=== PATIENT | female | born 1930 | race African-American/Black ===

== ENCOUNTER 2016-08-02 13:54 | Emergency (ER) | payer OTHER ==
[~2016-08-02] VITALS: Ht 160 cm; Wt 83.9 kg
--- NOTE | ~2016-08-02 | EKG ---
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
[~2016-08-02 13:54] MED LIST: ADVAIR 250-501 EACH INH; ADVAIR HFA 230M12 GM; AMLODIPINE BESY10 MG PO; APAP/CODEI12 MG/5 ML; APAP/CODEINE ELI5 M1 OR; ARICEPT 5 MG TAB5 MG; ARICEPT 5 MG TAB5 MG PO; ASPIR 8181 MG PO; AZOPT OPHTH1 %/10 M1 OP; BRIMONIDINE TAR1 BO1 OPHTHALMIC; CARVEDILOL12.5 MG PO; CARVEDILOL6.25 MG PO; CIPROFLOXACIN500 M1 PO; CLONIDINE HCL0.3 M2 PO; CLONIDINE HCL0.3 M3 PO; COMPAZINE10 MG PO; COREG PO; COREG6.25 MG PO; DEPAKOTE 250MG250 M1 PO; DUONEB 2.5-0.5 M3 ML INH; FISHOIL; FUROSEMIDE 40 M40 M1 PO; K-DUR10 ME1 PO; LASIX 80 MG TAB80 M1 PO; LASIX 80 MG TAB80 MG PO; LISINOPRIL20 MG PO; LISINOPRIL40 MG PO; LUMIGAN2.5 M1 OP; LUMIGAN2.5 M1 OPHTHALMIC; MINIPRIN81 MG PO; NAMENDA 10 MG T10 MG PO; NAMENDA XR28 MG PO; NORVASC10 MG PO; OMEPRAZOLE20 M2 PO; OMEPRAZOLE20 MG PO; PEPCID20 MG PO; POTASSIUM20 PO; PRAVASTATIN SOD40 MG PO; PREDNISONE 10 M10 MG PO; PROAIR HFA8.5 GM; PROAIR HFA8.5 GM INH; PROPOXY-N/APAP1 TAB PO; ROBITUSSIN100 MG/53 PO; SIMVASTATIN80 MG PO; SINGULAIR 10 MG10 M1 PO; SPIRONOLACTONE25 M1 PO; TESSALON PERLE100 MG PO; THEO-DUR200 MG PO; TRAMADOL 50 MG50 MG PO; TYLENOL325 MG PO; ULTRAM 50MG TAB50 MG PO; ZANTAC 150MG T150 MG PO; ZOCOR 10 MG TAB10 MG PO; ZPAK PO
[2016-08-02] MEDS ORDERED: LIPITOR10 MG PO (14:23)
[2016-08-02] MEDS ORDERED: CLARITIN10 MG PO (14:25)
[2016-08-02] MEDS ORDERED: XALATAN2.5 ML OPHTHALMIC (14:25)
[2016-08-02] MEDS ORDERED: METFORMIN HCL500 MG PO (14:26)
[2016-08-02] MEDS ORDERED: NAMENDA 10 MG T10 MG PO (14:26)
[2016-08-02] MEDS ORDERED: POTASSIUM20 PO (14:27)
[2016-08-02] MEDS ORDERED: THEREMS-M1 EACH PO (14:27)
[2016-08-02] MEDS ORDERED: TIMOLOL MA0.5 %/5 M2 OPHTHALMIC (14:28)
[2016-08-02] MEDS ORDERED: LOPERAMIDE 2 MG2 M1 PO (14:29)
[2016-08-02 14:30] LABS: HEMATOCRIT 31.5 % (37.0-47.0); HEMOGLOBIN 10.5 gm/dL (12.0-15.0); MCHC 33.4 % (28.0-37.0); MCV 89.7 fL (80.0-100.0); PLATELET COUNT 272 thou/uL (150-400); RBC 3.51 mil/uL (4.20-5.00); RDW 15.7 % (10.5-14.5); WBC 8.8 thou/uL (4.0-11.0)
[2016-08-02 14:35] LABS: MANUAL DIFF YES
[2016-08-02 14:40] LABS: CALCIUM 9.5 mg/dL (8.5-10.1); CREATININE 1.7 mg/dL (0.6-1.3); POTASSIUM 5.7 mmol/L (3.5-5.1)
[2016-08-02] MEDS ORDERED: AUGMENTIN 875-1 EACH PO (14:52)
[2016-08-02 14:59] LABS: TOTAL CELL COUNT 100
[2016-08-14] MEDS ORDERED: ALDACTONE25 MG PO (11:15)
[2016-08-14] MEDS ORDERED: LASIX 40 MG TAB40 M1 PO (11:15)
[2016-08-14] MEDS ORDERED: PULMICORT0.5 MG/21 INH (11:15)
== END 2016-08-02 16:25 | disposition home or self-care (01) ==
LOC: ER 13:54
PROVIDERS: Emergency Medicine
DX: J20.9 Acute bronchitis, unspecified (principal); R11.10 Vomiting, unspecified; R07.9 Chest pain, unspecified; K21.9 Gastro-esophageal reflux disease without esophagitis; I11.0 Hypertensive heart disease with heart failure; I50.9 Heart failure, unspecified; Z90.49 Acquired absence of other specified parts of digestive tract; Z88.2 Allergy status to sulfonamides; Z88.8 Allergy status to other drugs, medicaments and biological substances

== ENCOUNTER 2017-06-24 17:56 | Observation (INO) | payer OTHER ==
[~2017-06-24] VITALS: Ht 157.5 cm; Wt 74.8 kg
--- NOTE | ~2017-06-24 | EKG ---
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
[~2017-06-24 17:56] MED LIST changes: +ALDACTONE25 MG PO; +AUGMENTIN 875-1 EACH PO; +CLARITIN10 MG PO; +LASIX 40 MG TAB40 M1 PO; +LIPITOR10 MG PO; +LOPERAMIDE 2 MG2 M1 PO; +METFORMIN HCL500 MG PO; +PULMICORT0.5 MG/21 INH; +THEREMS-M1 EACH PO; +TIMOLOL MA0.5 %/5 M2 OPHTHALMIC; +XALATAN2.5 ML OPHTHALMIC
[2017-06-24 18:17] VITALS: BP 116/53
[2017-06-24] MEDS ORDERED: ALDACTONE25 MG PO (18:47)
[2017-06-24] MEDS ORDERED: ARICEPT 5 MG TAB5 MG PO (19:11)
[2017-06-24] MEDS ORDERED: CLARITIN10 MG PO (19:11)
[2017-06-24] MEDS ORDERED: DEPAKOTE 250MG250 M1 PO (19:13)
[2017-06-24] MEDS ORDERED: COSOPT OCUMETER10 ML OP (19:14)
[2017-06-24 19:24] LABS: HEMATOCRIT 30.1 % (37.0-47.0); HEMOGLOBIN 10.3 gm/dL (12.0-15.0); MCH 31.8 pg (26.0-34.0); MCHC 34.2 g/dL (28.0-37.0); MCV 93.1 fL (80.0-100.0); PLATELET COUNT 206 thou/uL (150-400); RBC 3.23 mil/uL (4.20-5.00); RDW 14.4 % (10.5-14.5); WBC 7.7 thou/uL (4.0-11.0)
[2017-06-24 19:26] LABS: MANUAL DIFF YES
[2017-06-24 19:34] LABS: ANION GAP 7 mmol/L (7-16); BUN 41 mg/dL (7-18); CALCIUM 9.9 mg/dL (8.5-10.1); CHLORIDE 109 mmol/L (98-107); CO2 27 mmol/L (21-32); CREATININE 2.7 mg/dL (0.6-1.0); GLUCOSE 99 mg/dL (74-106); POTASSIUM 4.9 mmol/L (3.5-5.1); SODIUM 143 mmol/L (136-145)
[2017-06-24 19:43] LABS: ALBUMIN 3.6 g/dL (3.4-5.0); ALKALINE PHOSPHATASE 83 U/L (46-116); SGOT 19 U/L (15-37); SGPT 11 U/L (30-65); TOTAL BILIRUBIN 0.2 mg/dL (<0.1-1.0); TOTAL PROTEIN 7.2 g/dL (6.4-8.2); TROPONIN-I < 0.04 ng/mL (<0.06)
[2017-06-24 19:45] LABS: TOTAL CELL COUNT 100
[2017-06-24 19:46] LABS: ABSOLUTE NEUTROPHILS 4.6 thou/uL (1.4-8.2)
[2017-06-24 19:57] LABS: URINE BILIRUBIN NEGATIVE (Negative); URINE BLOOD NEGATIVE (Negative); URINE COLOR YELLOW; URINE GLUCOSE-RANDOM* NEGATIVE (Negative); URINE KETONES NEGATIVE (Negative); URINE NITRITE NEGATIVE (Negative); URINE PROTEIN (DIPSTICK) NEGATIVE (Negative); URINE SPECIFIC GRAVITY 1.015 (1.005-1.035); URINE UROBILINOGEN 0.2 E.U./dl (0.2-1.0)
[2017-06-24] MEDS ORDERED: PEPCID20 MG PO (20:43)
[2017-06-24] MEDS ORDERED: SINGULAIR 10 MG10 M1 PO (20:43)
[2017-06-24] MEDS ORDERED: AMLODIPINE BESY10 MG PO (20:44)
[2017-06-24 21:48] VITALS: BP 123/53
[2017-06-24 23:16] VITALS: BP 146/68
[2017-06-25] MEDS ORDERED: COSOPT OCUMETER10 M1 OPHTHALMIC (00:48)
[2017-06-25 03:26] VITALS: BP 147/72
[2017-06-25 06:07] LABS: CREATININE 1.8 mg/dL (0.6-1.0)
[2017-06-25 15:34] VITALS: BP 139/69
== END 2017-06-25 17:45 ==
LOC: ER 17:56 → EROBS 20:54 → 4E 20:54
PROVIDERS: Physician Assistant
DX: E86.9 Volume depletion, unspecified (principal); I11.0 Hypertensive heart disease with heart failure; I50.32 Chronic diastolic (congestive) heart failure; E78.00 Pure hypercholesterolemia, unspecified; K21.9 Gastro-esophageal reflux disease without esophagitis; H54.40 Blindness, one eye, unspecified eye; F03.90 Unspecified dementia, unspecified severity, without behavioral disturbance, psychotic disturbance, mood disturbance, and anxiety; N17.0 Acute kidney failure with tubular necrosis

== ENCOUNTER 2018-01-11 08:05 | Inpatient (IN) | payer OTHER ==
[~2018-01-11] VITALS: Ht 162.6 cm; Wt 77.6 kg
--- NOTE | ~2018-01-11 | HC ---
[facility] [place] [address] CONSULTATION Name: VONNIE BRANHAM Room #: 355-P ADM IN .R.#: [id number] Admission: 01/11/18 Attend Phys: Sarah Valencia MD Discharge: Date of : 31 Report #: [id number] THIS REPORT FOR: //name// CC: Sarah Valencia DATE OF SERVICE: 01/13/2018 INFECTIOUS DISEASES CONSULTATION REASON FOR CONSULTATION: Evaluate bacteremia. HISTORY OF PRESENT ILLNESS: The patient was an 87-year-old admitted on 01/11/2018 from senior care with hypoxemia. She was in respiratory distress with oxygen saturation down to the 65% range. It was felt most likely related to congestive heart failure which she has had issues with before. She has had no fever, chills or sweats. There was question that she may have aspirated last night and was placed on BiPAP. Her white count went up to 15,000. One of the blood cultures from admission is now growing gram-positive bacillus. She has been placed on vancomycin and Levaquin. She has had no cough or sputum production. She is a poor historian. She stated that only thing she wanted to do is to go home. She did know she was in the hospital. She did know that she resides in a senior care. She had a CAT scan, which showed a small left-sided pulmonary embolus. Pulmonary Medicine evaluated and thought this could possibly be embolus versus artifact. Cardiology evaluated the patient as well and is assisting in her care. Speech therapy is to evaluate. No video swallow yet performed. No nausea or vomiting. No diarrhea. Able to void on her own. ALLERGIES: IODINE AND SULFA. MEDICATIONS: As noted on her SEP, now including vancomycin and Levaquin. PAST MEDICAL HISTORY: Congestive heart failure, gastroesophageal reflux, hypertension, strokes, cholecystectomy, bilateral cataract surgery, glaucoma, blind in the right eye and hyperlipidemia. FAMILY HISTORY: Hypertension. SOCIAL HISTORY: Nonsmoker. No significant alcohol intake. No tuberculosis exposure. No HIV risk factors. REVIEW OF SYSTEMS: Denies any headache, acute change in vision or sore throat. Denies any rash or adenopathy. There has been no dysuria. No chest pain. According to the nursing staff, no neurologic changes. No seizure activity. [address] [address] CONSULTATION Name: VONNIE BRANHAM Room #: 355-[facility] IN [facility].#: [id number] Admission: 01/11/18 Attend Phys: Sarah Valencia MD Discharge: Date of : 31 Report #: [id number] PHYSICAL EXAMINATION: VITAL SIGNS: Afebrile and hemodynamically stable. Most recent vitals include pulse of 67 and blood pressure 126/56. GENERAL: She was alert and cooperative. She was on 2 liters of oxygen per nasal cannula. SKIN: Unremarkable. LYMPH: Unremarkable. HEENT: She was with decreased vision in the right eye. Mouth, unremarkable. NECK: Supple. No thyromegaly or mass. LUNGS: Few crackles in the bases bilaterally. No rub or consolidation. HEART: Regular, without murmur. No gallop. ABDOMEN: Soft and nontender. No hepatosplenomegaly or mass. GENITOURINARY: The patient refused genital and rectal examination. She did have an indwelling Up catheter. EXTREMITIES: Remarkable for advanced arthritis changes. She had significant hammertoe deformity. Sensation was intact. Overall, generalized weakness. NEUROLOGIC: No other focal neurologic examination. LABORATORY STUDIES: Blood cultures as noted above, with gram-positive rods seen on 1 of 2 cultures from 01/11/2018. Sputum culture is currently pending. Repeat blood cultures and urine culture pending from today. CT scan of the chest showed basilar atelectasis, infiltrates, mild bilateral hilar lymphadenopathy, cardiomegaly, small bilateral pleural effusions and tiny left anterior basilar segment pulmonary embolus, 3 mm. Urinalysis, rare wbc's, moderate rbc's and moderate bacteria. Urine cultures pending. BNP 6479. Troponin 0.06. Sodium 148, potassium 4.2, bicarbonate at 30 and creatinine 1.0. Liver function test normal. D-dimer 2. IMPRESSION: An 87-year-old senior care resident who presents with congestive heart failure now has bilateral basilar infiltrates and acute hypoxemia last evening, now improved on 2 liters. She has a combination of aspiration versus congestive heart failure and small pulmonary embolus. I suspect the bacteremia is most likely a contaminant. PLAN: I would recommend that we continue her antibiotic coverage for an aspiration with healthcare-associated coverage. She will continue oxygen supplementation. Aspiration precautions. Repeat CBC to ensure normalization of her white count. <ELECTRONICALLY SIGNED> By: Rancho Del Cid MD 01/14/18 1450 2133 08 Rancho Del Cid MD /nt
--- NOTE | ~2018-01-11 | HC ---
[facility] [place] [address] CONSULTATION Name: VONNIE BRANHAM Room #: 429-P ADM IN ..#: [id number] Admission: 01/11/18 Attend Phys: Sarah Valencia MD Discharge: Date of : 31 Report #: [id number] THIS REPORT FOR: //name// CC: Sarah Vlaencia DATE OF SERVICE: 01/11/2018 CARDIOLOGY CONSULTATION INDICATION: Dyspnea. HISTORY OF PRESENT ILLNESS: This is an 87-year-old female residing at [facility] who was transferred for an apparent respiratory distress. She was found to be in distress and transferred to the hospital. She has a history of apparent COPD, severe cardiomyopathy, dementia and hypertension. Presently, the patient denies any episodes of chest pains, lightheadedness or fevers. She does have some dyspnea, which has improved. There is no history of PND or orthopnea. She is a poor historian and much of the information is obtained from her medical records. PAST MEDICAL HISTORY: Severe cardiomyopathy, ventricular ectopy, dementia, hypertension, CVA, chronic edema. MEDICATIONS: Include Aricept 10 mg, aspirin 81 mg, Coreg 6.25 mg twice a day, Lasix 40 mg in the morning, Lipitor 10 mg, Norvasc 10 mg. ALLERGIES: SULFA AND IODINE. SOCIAL HISTORY: Negative for tobacco use. FAMILY HISTORY: Unobtainable. REVIEW OF SYSTEMS: Unobtainable. PHYSICAL EXAMINATION: VITAL SIGNS: Blood pressure is 139/60, heart rate is 80 beats per minute. GENERAL APPEARANCE: An elderly appearing female in no acute distress. HEENT: Normocephalic. Sclerae are anicteric. ENT: Oral mucosa moist. NECK: Supple. LUNGS: Diminished breath sounds at the bases. CARDIAC: Regular rate and rhythm, S1, S2 positive. ABDOMEN: Soft, nontender. EXTREMITIES: No cyanosis, positive edema. IMAGING: ECG reveals sinus rhythm, first-degree AV block, right bundle branch block, left anterior hemiblock, PVCs. [facility] [address] [place] [address] CONSULTATION Name: VONNIE BRANHAM Room #: 429-[facility] IN .R.#: [id number] Admission: 01/11/18 Attend Phys: Sarah Valencia MD Discharge: Date of : 31 Report #: [id number] LABORATORY VALUES: White count is 10, hemoglobin is 9.9. Sodium is 147, creatinine is 0.9. ASSESSMENT AND PLAN: 1. Acute on chronic combined congestive heart failure, previously known to have an ejection fraction in the 30% range. She appears comfortable lying completely supine. She does have evidence for fluid overload, will manage with intravenous Lasix. 2. Hypertension, continue with medications. 3. Edema, should improve with intravenous Lasix therapy. 4. Dementia, continue with Namenda. <ELECTRONICALLY SIGNED> By: Grant Daigle MD 01/12/18 0718 1540 2215 MD jessica Parker
--- NOTE | ~2018-01-11 | EKG ---
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: neris : 1930 Requested By: Sarah Valencia Order Number: [id number] MD: Domingo Bright Measurements Intervals [place] Rate: 93 P: -73 MA: 146 QRS: -64 QRSD: 151 T: 95 QT: 411 QTc: 512 Interpretive Statements Sinus atrial rhythm Frequent supraventricular complexes Left atrial enlargement Right bundle branch block Left anterior hemiblock Baseline wander in lead(s) V6 Compared to ECG 01/11/2018 08:10:03 atrial premature complexes now present PVCs are no longer present Electronically Signed On 01-13-2018 8:44:42 CDT by Domingo Bright [email or web address] <ELECTRONICALLY SIGNED> By: Domingo Bright MD, [facility] 01/13/18 0844 0056 0056 Domingo Bright MD, [facility] /EPI
--- NOTE | ~2018-01-11 | EKG ---
[facility] [place] [address] ELECTROCARDIOGRAM REPORT Name: VONNIE BRANHAM Room #: 429-[facility] IN .R.#: [id number] Admission: 01/11/18 Attend Phys: Sarah Valencia MD Discharge: Date of : 31 Report #: [id number] THIS REPORT FOR: //name// [facility] ED Test Date: 2018-01-11 Test Time: 08:10:03 Pat Name: VONNIE BRANHAM Department: Room: Gender: F Cardiovascular Disease Specialist: nixon : 1930 Requested By: Ghislaine Garrett Order Number: [id number] MD: Grant Daigle Measurements Intervals [place] Rate: 84 P: 0 KS: 196 QRS: -66 QRSD: 157 T: 100 QT: 440 QTc: 521 Interpretive Statements Sinus rhythm Multiple premature complexes, vent & supraven Right bundle branch block LVH with IVCD and secondary repol abnrm Prolonged QT interval Compared to ECG 06/24/2017 18:49:27 Intraventricular conduction delay now present Early repolarization now present Prolonged QT interval now present First degree AV block no longer present Left anterior fascicular block no longer present Electronically Signed On 01-11-2018 17:21:40 CDT by Grant Daigle [email or web address] <ELECTRONICALLY SIGNED> By: Grant Daigle MD 01/11/18 1721 0810 0810 Grant Daigle MD /EPI
[2018-01-11 08:05] VITALS: BP 139/62
[~2018-01-11 08:05] MED LIST changes: +COSOPT OCUMETER10 M1 OPHTHALMIC; +COSOPT OCUMETER10 ML OP
[2018-01-11 08:20] LABS: ABSOLUTE NEUTROPHILS 7.5 thou/uL (1.4-8.2); BASOPHILS 0.9 % (0.0-2.0); EOSINOPHILS 2.5 % (0.0-3.0); HEMATOCRIT 28.7 % (37.0-47.0); HEMOGLOBIN 9.9 gm/dL (12.0-15.0); LYMPHOCYTES 15.2 % (24.0-44.0); MCH 30.3 pg (26.0-34.0); MCHC 34.7 g/dL (28.0-37.0); MCV 87.3 fL (80.0-100.0); PLATELET COUNT 225 thou/uL (150-400); POLYS 75.4 % (36.0-66.0); RBC 3.29 mil/uL (4.20-5.00); RDW 16.7 % (10.5-14.5)
[2018-01-11 08:33] LABS: CALCIUM 9.7 mg/dL (8.5-10.1); CREATININE 0.9 mg/dL (0.6-1.0); POTASSIUM 3.5 mmol/L (3.5-5.1)
[2018-01-11 08:33] LABS: BE(vivo) 1.8 mmol/L (-2 to +3); HCO3 27.7 mmol/L (22.0-26.0); PCO2 49.2 mmHg (35.0-45.0); PO2 74.9 mmHg (80.0-100.0); pH 7.368 (7.360-7.450); sO2 94.5 % (92.0-98.0)
[2018-01-11] MEDS ORDERED: CLARITIN10 MG PO (09:25)
[2018-01-11] MEDS ORDERED: COSOPT OCUMETER10 M1 OPHTHALMIC (09:29)
[2018-01-11] MEDS ORDERED: LASIX 40 MG TAB40 M2 PO (09:30)
[2018-01-11 10:09] VITALS: BP 132/76
[2018-01-11 11:57] VITALS: BP 156/94
[2018-01-11 12:02] VITALS: BP 156/94
[2018-01-11 19:43] VITALS: BP 146/65
[2018-01-12 03:36] VITALS: BP 148/75
[2018-01-12 06:11] LABS: CALCIUM 9.2 mg/dL (8.5-10.1); CREATININE 1.1 mg/dL (0.6-1.0); POTASSIUM 3.7 mmol/L (3.5-5.1)
[2018-01-12 07:30] VITALS: BP 147/71
[2018-01-12 15:50] VITALS: BP 119/60
[2018-01-12 20:00] VITALS: BP 135/44
[2018-01-13] VITALS (7 sets, daily range): BP systolic 122–167; BP diastolic 56–90
[2018-01-13 01:00] LABS: BE(vivo) 0.5 mmol/L (-2 to +3); HCO3 27.8 mmol/L (22.0-26.0); PCO2 58.3 mmHg (35.0-45.0); PO2 80.5 mmHg (80.0-100.0); pH 7.297 (7.360-7.450); sO2 94.5 % (92.0-98.0)
[2018-01-13 01:38] LABS: HEMOGLOBIN 10.6 gm/dL (12.0-15.0); MCH 29.8 pg (26.0-34.0); MCHC 34.1 g/dL (28.0-37.0); MCV 87.4 fL (80.0-100.0); RBC 3.55 mil/uL (4.20-5.00); WBC 15.3 thou/uL (4.0-11.0)
[2018-01-13 01:59] LABS: ALBUMIN 3.7 g/dL (3.4-5.0); ANION GAP 10 mmol/L (7-16); BUN 38 mg/dL (7-18); CALCIUM 9.2 mg/dL (8.5-10.1); CHLORIDE 108 mmol/L (98-107); CO2 30 mmol/L (21-32); DIRECT BILIRUBIN < 0.1 mg/dL (<0.1-0.3); GLUCOSE 191 mg/dL (74-106); POTASSIUM 4.2 mmol/L (3.5-5.1); SGOT 30 U/L (15-37); SGPT 30 U/L (30-65); SODIUM 148 mmol/L (136-145); TOTAL BILIRUBIN 0.3 mg/dL (<0.1-1.0); TOTAL PROTEIN 7.2 g/dL (6.4-8.2)
[2018-01-13 02:34] LABS: BE(vivo) 2.2 mmol/L (-2 to +3); HCO3 28.1 mmol/L (22.0-26.0); PCO2 49.9 mmHg (35.0-45.0); pH 7.369 (7.360-7.450); sO2 97.3 % (92.0-98.0)
[2018-01-13 03:59] LABS: URINE BILIRUBIN NEGATIVE (Negative); URINE BLOOD 3+ (Negative); URINE CLARITY SL CLOUDY; URINE COLOR YELLOW; URINE GLUCOSE-RANDOM* NEGATIVE (Negative); URINE KETONES NEGATIVE (Negative); URINE PROTEIN (DIPSTICK) TRACE (Negative); URINE UROBILINOGEN 0.2 E.U./dl (0.2-1.0)
[2018-01-13 04:00] LABS: URINE LEUKOCYTES-REFLEX 2+ (Negative); URINE NITRITE-REFLEX POSITIVE (Negative)
[2018-01-13 04:11] LABS: CASTS None Seen /LPF (None Seen); MUCUS 0-3 Light strn/LPF (None Seen); SQUAMOUS None Seen /LPF (0-3); TRIPLE PHOSPHATE CRYSTALS >10 Many /LPF (None Seen); URINE WBC-REFLEX 0-5 Rare /HPF (0-5)
[2018-01-13 04:12] LABS: CRYSTALS None Seen /LPF (None Seen)
[2018-01-13 12:16] LABS: BE(vivo) 5.6 mmol/L (-2 to +3); HCO3 30.2 mmol/L (22.0-26.0); PO2 90.7 mmHg (80.0-100.0); pH 7.454 (7.360-7.450); sO2 97.2 % (92.0-98.0)
[2018-01-14 05:16] VITALS: BP 137/62
[2018-01-14 06:27] LABS: ABSOLUTE NEUTROPHILS 6.5 thou/uL (1.4-8.2); BASOPHILS 0.5 % (0.0-2.0); EOSINOPHILS 3.7 % (0.0-3.0); HEMATOCRIT 27.8 % (37.0-47.0); HEMOGLOBIN 9.2 gm/dL (12.0-15.0); LYMPHOCYTES 22.7 % (24.0-44.0); MCH 29.4 pg (26.0-34.0); MCHC 33.3 g/dL (28.0-37.0); MCV 88.5 fL (80.0-100.0); MONOCYTES 10.5 % (1.0-8.0); POLYS 62.6 % (36.0-66.0); RBC 3.14 mil/uL (4.20-5.00); RDW 16.9 % (10.5-14.5); WBC 10.4 thou/uL (4.0-11.0)
[2018-01-14 06:29] LABS: PLATELET COUNT 211 thou/uL (150-400)
[2018-01-14 06:30] LABS: CALCIUM 8.8 mg/dL (8.5-10.1); POTASSIUM 3.5 mmol/L (3.5-5.1)
[2018-01-14 08:02] VITALS: BP 129/50
[2018-01-14 11:52] VITALS: BP 135/65
[2018-01-14 15:18] VITALS: BP 121/58
[2018-01-14 19:29] VITALS: BP 114/44
[2018-01-15 03:51] VITALS: BP 136/55
[2018-01-15 07:47] VITALS: BP 129/52
[2018-01-15 12:14] VITALS: BP 126/65
[2018-01-15 16:49] VITALS: BP 128/60
[2018-01-15 20:23] VITALS: BP 139/65
[2018-01-16 02:43] LABS: CALCIUM 8.8 mg/dL (8.5-10.1); CREATININE 1.2 mg/dL (0.6-1.0); POTASSIUM 3.5 mmol/L (3.5-5.1)
[2018-01-16 04:30] VITALS: BP 149/65
[2018-01-16 07:18] VITALS: BP 149/58
[2018-01-16 11:49] VITALS: BP 119/59
[2018-01-16 15:29] VITALS: BP 154/74
[2018-01-16 17:25] LABS: INR 1.1; PROTIME 10.8 Seconds (9.3-11.4)
[2018-01-16 19:55] VITALS: BP 135/59
[2018-01-17 03:55] VITALS: BP 132/55
[2018-01-17 05:45] LABS: INR 1.1
[2018-01-17 07:53] VITALS: BP 143/58
[2018-01-17] MEDS ORDERED: ALBUTEROL2.5 MG/0.5 INH (10:16)
[2018-01-17] MEDS ORDERED: LEVAQUIN 500 M500 M1 PO (10:16)
[2018-01-17] MEDS ORDERED: XARELTO15 MG PO (10:20)
[2018-01-17] MEDS ORDERED: DEMADEX 2020 MG/1 TA PO (10:21)
[2018-01-17 11:21] VITALS: BP 138/68
== END 2018-01-17 12:53 | DRG 291 ==
LOC: ER 08:05 → 4E 09:13 → EROBS 09:13 → 4E 10:30 → 3W 01-13 01:36
PROVIDERS: Emergency Medicine; Internal Medicine; Internal Medicine Cardiovascular Disease; Internal Medicine Pulmonary Disease; Specialist
PROC: 5A09357 Assistance with Respiratory Ventilation, Less than 24 Consecutive Hours, Continuous Positive Airway Pressure (ICD-10-PCS; principal; 2018-01-13)
DX: I13.0 Hypertensive heart and chronic kidney disease with heart failure and stage 1 through stage 4 chronic kidney disease, or unspecified chronic kidney disease (principal); I50.43 Acute on chronic combined systolic (congestive) and diastolic (congestive) heart failure; J96.21 Acute and chronic respiratory failure with hypoxia; J96.22 Acute and chronic respiratory failure with hypercapnia; I26.99 Other pulmonary embolism without acute cor pulmonale; F03.91 Unspecified dementia, unspecified severity, with behavioral disturbance; E87.0 Hyperosmolality and hypernatremia; J84.9 Interstitial pulmonary disease, unspecified; I42.9 Cardiomyopathy, unspecified; E78.00 Pure hypercholesterolemia, unspecified; H40.9 Unspecified glaucoma; H54.61 Unqualified visual loss, right eye, normal vision left eye; J44.9 Chronic obstructive pulmonary disease, unspecified; N18.3 Chronic kidney disease, stage 3 (moderate); K21.9 Gastro-esophageal reflux disease without esophagitis; Z86.73 Personal history of transient ischemic attack (TIA), and cerebral infarction without residual deficits; Z90.49 Acquired absence of other specified parts of digestive tract; Z98.49 Cataract extraction status, unspecified eye; Z88.2 Allergy status to sulfonamides; Z91.041 Radiographic dye allergy status; Z82.49 Family history of ischemic heart disease and other diseases of the circulatory system; Z79.82 Long term (current) use of aspirin; Z79.899 Other long term (current) drug therapy; Z79.01 Long term (current) use of anticoagulants
CPT/HCPCS: 10183; 10879

== ENCOUNTER 2019-01-09 05:52 | Inpatient (IN) | payer OTHER ==
[~2019-01-09] VITALS: Ht 157.5 cm; Wt 81.1 kg
[2019-01-09] VITALS (30 sets, daily range): BP systolic 120–177; BP diastolic 46–108
[~2019-01-09 05:52] MED LIST changes: +ALBUTEROL2.5 MG/0.5 INH; +DEMADEX 2020 MG/1 TA PO; +IPRATROPIU0.2 MG/1 M INH; +LASIX 40 MG TAB40 M2 PO; +LEVAQUIN 500 M500 M1 PO; +XARELTO15 MG PO; +XARELTO20 MG PO
[2019-01-09] MEDS ORDERED: TIMOL 0.5%-BRIM10 ML OPHTHALMIC (06:48)
[2019-01-09 06:55] LABS: ABSOLUTE NEUTROPHILS 6.5 thou/uL (1.4-8.2); BASOPHILS 0.5 % (0.0-2.0); EOSINOPHILS 0.3 % (0.0-3.0); HEMATOCRIT 29.7 % (37.0-47.0); HEMOGLOBIN 9.8 gm/dL (12.0-15.0); LYMPHOCYTES 9.1 % (24.0-44.0); MCH 30.5 pg (26.0-34.0); MCV 92.5 fL (80.0-100.0); MONOCYTES 8.8 % (1.0-8.0); PLATELET COUNT 172 thou/uL (150-400); POLYS 81.3 % (36.0-66.0); RBC 3.21 mil/uL (4.20-5.00); RDW 15.9 % (10.5-14.5)
[2019-01-09 07:00] LABS: CALCIUM 9.2 mg/dL (8.5-10.1); CREATININE 0.9 mg/dL (0.6-1.0); POTASSIUM 3.5 mmol/L (3.5-5.1)
[2019-01-09 07:10] LABS: ALBUMIN 3.4 g/dL (3.4-5.0); MAGNESIUM 2.5 mg/dL (1.8-2.4); TOTAL BILIRUBIN 0.3 mg/dL (<0.1-1.0); TOTAL PROTEIN 6.9 g/dL (6.4-8.2); TROPONIN-I 0.06 ng/mL (<0.06)
[2019-01-09 07:39] LABS: URINE BILIRUBIN NEGATIVE (Negative); URINE BLOOD NEGATIVE (Negative); URINE CLARITY CLEAR; URINE COLOR YELLOW; URINE GLUCOSE-RANDOM* NEGATIVE (Negative); URINE KETONES NEGATIVE (Negative); URINE LEUKOCYTES-REFLEX NEGATIVE (Negative); URINE NITRITE-REFLEX NEGATIVE (Negative); URINE PROTEIN (DIPSTICK) 1+ (Negative); URINE SPECIFIC GRAVITY 1.025 (1.005-1.035)
[2019-01-09 07:46] LABS: BACTERIA-REFLEX 1-9 Few /HPF (None Seen); CRYSTALS None Seen /LPF (None Seen); HYALINE CASTS 0-3 Few /LPF (None Seen); SQUAMOUS 0-3 Few /LPF (0-3); URINE RBC None Seen /HPF (0-2); URINE WBC-REFLEX 0-5 Rare /HPF (0-5)
[2019-01-09 08:07] LABS: BE(vivo) 4.1 mmol/L (-2 to +3); HCO3 30.8 mmol/L (22.0-26.0); PCO2 56.7 mmHg (35.0-45.0); PO2 82.4 mmHg (80.0-100.0); pH 7.353 (7.360-7.450); sO2 95.4 % (92.0-98.0)
--- NOTE | 2019-01-09 08:23 | EKG ---
[facility] [employer] [place] [address] ELECTROCARDIOGRAM REPORT Name: VONNIE BRANHAM [facility] [id number] ������������������ Admission: 01/09/19 ������������������ Attend Phys: Discharge: ������������������ Date of : 31 Report #: [id number] ����������������������������������������������������������������� [id number] THIS REPORT FOR: //name// [facility] ED Test Date: 2019-01-09 Test Time: 05:55:10 Pat Name: VONNIE BRANHAM Department: Room: Gender: F Valve Setter: KIRBY : 1930 Requested By: Ramesh Ruffin Order Number: [id number] MD: Marcial Watts Measurements Intervals [place] Rate: 71 P: 47 [place]: 274 QRS: -61 QRSD: 163 T: 98 QT: 476 QTc: 518 Interpretive Statements Sinus rhythm Multiform ventricular premature complexes Prolonged [place] interval Right bundle branch block LVH with IVCD and secondary repol abnrm Electronically Signed On 01-09-2019 8:22:52 CDT by Marcial Watts [email or web address] ��������������������������������������������� <ELECTRONICALLY SIGNED> ���������������������������������������� By: Marcial Watts MD ��������������������������������������������� 01/09/19 0822 0555 0555 Marcial Watts MD /GABRIEL
[2019-01-09 13:58] LABS: BE(vivo) -2.1 mmol/L (-2 to +3); HCO3 23.2 mmol/L (22.0-26.0); PCO2 41.7 mmHg (35.0-45.0); pH 7.363 (7.360-7.450); sO2 78.2 % (92.0-98.0)
[2019-01-09 13:59] LABS: PO2 43.9 mmHg (80.0-100.0)
[2019-01-09 15:43] LABS: BE(vivo) 3.9 mmol/L (-2 to +3); HCO3 29.8 mmol/L (22.0-26.0); PCO2 51.1 mmHg (35.0-45.0); PO2 98.5 mmHg (80.0-100.0); pH 7.384 (7.360-7.450); sO2 97.3 % (92.0-98.0)
--- NOTE | 2019-01-09 16:53 | NUR ---
VASCULAR ACCESS CONSULTED FOR PICC LINE IN ER. PT'S LABS,MEDS,HISTORY,ORDER AND CONSENT VERIFIED. DISCUSSED BENEFITSA AND RISK WITH DAUGHTER,VERBALIZED UNDERSTANDING. DANK BRACHIAL WIDELY PATENT WITH USG,1% LIDOCAINE GIVEN SQ.5FR TL POWER PICC TRIMMED TO 43CM INSERTED TO 0CM PER [facility] POLICY. STAT CXR OBTAINED.
--- NOTE | 2019-01-09 18:26 | NUR ---
CXR SAYS PICC TOO DEEP, WITHDREW 2 CM AND RE X-RAYED. CONFIRMED PLACEMENT ON 2ND XRAY. PICC RELEASED FOR IMMEDIATE USE PER PROTOCOL TO DIMAS RAMIREZ
--- NOTE | 2019-01-09 19:35 | NUR ---
AT 1730, ADMITTED TO ICU #246 WITH DIAGNOSIS: RESP FAILURE, PULM EDEMA AND HYPOXIA. SEE ADMISSION ASSESSMENT FOR DETAILS. SEDATED ON VENT WITH PROPOFOL INFUSING AT 20 MCG/KG/MIN. SR WITH PVC'S, LUNGS WHEEZY THROUGHOUT, ETT 7.0, 24CM AT TEETH, AC-14, TV-450, PEEP-5, FIO2-50%, SUCTIONING THICK WHITE SECRETIONS, NPO, LOCKE 18FR INTACT DRAINING CLEAR YELLOW URINE. HISTORY OBTAINED FROM DPOA-MAGUI WALKER, DAUGHTER.
[2019-01-10] VITALS (46 sets, daily range): BP systolic 90–164; BP diastolic 46–81
--- NOTE | 2019-01-10 04:29 | NUR ---
SHIFT NOTE PT DOWSY AND LETHARGIC. VS AND ASSESSMENT CHARTED. PT IN RESTRAINTS SAFETY AND DIGNITY CHECKS PERFORMED Q2H. LOCKE TO DD. PT RESPONDS TO NURSES QUESTIONS WITH QUEING. PT HEART RATE JUMPS TO THE 130'S WHEN TURNING AND SUCTIONING PATIENT. PT HAD SOME S/SX OF PAIN AND RESTLESSNESS SO PT MEDS TITRATED ACCORDINGLY. PT WILL CONTINUE TO BE MONITORED TILL THE END OF THE SHIFT. PT TURNED Q2H AND PRN. ORAL CARE PERFORMED WITH TURNS.
[2019-01-10 05:21] LABS: HCO3 27.6 mmol/L (22.0-26.0); PCO2 42.5 mmHg (35.0-45.0); PO2 96.6 mmHg (80.0-100.0); pH 7.431 (7.360-7.450); sO2 97.5 % (92.0-98.0)
[2019-01-10 05:39] LABS: HEMATOCRIT 30.9 % (37.0-47.0); HEMOGLOBIN 10.3 gm/dL (12.0-15.0); MCH 30.7 pg (26.0-34.0); MCHC 33.5 g/dL (28.0-37.0); MCV 91.7 fL (80.0-100.0); PLATELET COUNT 179 thou/uL (150-400); RBC 3.37 mil/uL (4.20-5.00); RDW 15.6 % (10.5-14.5); WBC 6.7 thou/uL (4.0-11.0)
[2019-01-10 05:52] LABS: ALBUMIN 3.3 g/dL (3.4-5.0); CALCIUM 8.9 mg/dL (8.5-10.1); CREATININE 0.9 mg/dL (0.6-1.0); POTASSIUM 3.1 mmol/L (3.5-5.1); TOTAL BILIRUBIN 0.5 mg/dL (<0.1-1.0); TOTAL PROTEIN 6.7 g/dL (6.4-8.2)
--- NOTE | 2019-01-10 05:53 | NUR ---
EVENT NOTE- AT 0430 PT'S HEART RATE INCREASED AFTER TURNING AND ORAL CARE. HEART RATE NOT DECREASING. EKG GRABBED BY NURSING STAFF. EKG HAD AND UNCOMFIMED READING OF ACUTE LA. CHARGE NURSE RAN EKG TO HAVE ED DOCTOR INTERPRET IT. ER DOCTOR STATED THAT THERE WAS NOT A STEMI AND PHYSICIAN SIGNED FORM. DR. COFFMAN CALLED TROPONIN ORDERED. WILL CONTINUE TO MONITOR PATIENT.
[2019-01-10 06:50] LABS: ABSOLUTE NEUTROPHILS 4.4 thou/uL (1.4-8.2); PLATELET ESTIMATE NORMAL
--- NOTE | 2019-01-10 08:34 | 2DMMODE ---
[facility] [place] [address] 2 D/M-MODE ECHOCARDIOGRAM Name: YONASVONNIE L Room #: 246-P [facility] IN .R.#: [id number] ������������� Admission: 01/09/19 ������������� Attend Phys: Sarah Valencia MD Discharge: ��� ������������� ��� Date of : 32 Date of Service: 01/10/19 0833 �� Report #: [id number] �������� ��������������������������������������������[id number] THIS REPORT FOR: //name// APPROVED REPORT Study performed: 01/10/2019 07:06:32 EXAM: Comprehensive 2D, Doppler, and color-flow Echocardiogram Patient Location: ICU Room #: [facility] Status: routine BSA: 1.75 HR: 80 bpm BP: 121/73 mmHg Rhythm: Atrial Fibrillation Other Information Study Quality: Good/Patient on vent. Indications Congestive Heart Failure Dyspnea Hx: CHF, HTN, HLP. 2D Dimensions RVDd: 41.17 mm IVSd: 12.00 (7-11mm) LVOT Diam: 21.26 (18-24mm) LVDd: 62.00 mm PWd: 12.00 (7-11mm) Ascending Ao: 33.73 (22-36mm) LVDs: 54.56 (25-40mm) Aortic Root: 34.06 mm Volumes Left Atrial Volume (Systole) Single Plane 4CH: 94.30 mL Single Plane 2CH: 94.85 mL LA ESV Index: 56.00 mL/m2 Aortic Valve AoV Peak Jean.: 1.19 m/s AO Peak Gr.: 7.02 mmHg LVOT Max P.74 mmHg LVOT Max V: 0.82 m/s ANDRES Vmax: 2.43 cm2 Mitral Valve MV Decel. Time: 120.71 ms [facility] [place] [address] 2 D/M-MODE ECHOCARDIOGRAM Name: VONNIE BRANHAM Room #: 246-P [facility] IN [facility]#: [id number] ������������� Admission: 01/09/19 ������������� Attend Phys: Sarah Valencia MD Discharge: ��� ������������� ��� Date of : 32 Date of Service: 01/10/19 0833 �� Report #: [id number] �������� ��������������������������������������������[id number] MV E Max Jean.: 1.34 m/s Pulmonary Valve PV Peak Jean.: 0.80 m/s PV Peak Gr.: 2.68 mmHg Tricuspid Valve TR Peak Jean.: 3.40 m/s RAP Estimate: 10.00 mmHg TR Peak Gr.: 46.11 mmHg PA Pressure: 56.00 mmHg Left Ventricle Left ventricle is moderately dilated. Mild concentric left ventricular hypertrophy. Left ventricular systolic function is severely decreased. Inferior and inferolateral wall akinesis. LVEF is 25%. This study is not technically sufficient to allow evaluation of the LV diastolic function due to atrial fibrillation. Right Ventricle Right ventricle is at the upper limits of normal. Right ventricle is moderately hypokinetic. Atria Left atrium is severely dilated. Right atrium is mildly dilated. Aortic Valve Aortic valve is trileaflet; mildly calcified. Trace aortic regurgitation. There is no aortic valvular stenosis. Mitral Valve The mitral valve is normal in structure. Moderately severe to severe mitral regurgitation Tricuspid Valve The tricuspid valve is normal in structure. Mild to moderate tricuspid regurgitation. Estimated PAP is 55-60mmHg. Pulmonic Valve The pulmonary valve is normal in structure. Mild pulmonic regurgitation. Great Vessels The aortic root is normal in size. The ascending aorta is normal in size. IVC is normal in size and collapses <50% with inspiration. [facility] [address] [place] [address] 2 D/M-MODE ECHOCARDIOGRAM Name: ALMA BRANHAMN Robert Room #: 246-P [facility] IN .R.#: [id number] ������������� Admission: 01/09/19 ������������� Attend Phys: Sarah Valencia MD Discharge: ��� ������������� ��� Date of : 32 Date of Service: 01/10/19 0833 �� Report #: [id number] �������� ��������������������������������������������[id number] Pericardium There is no pericardial effusion. <Conclusion> Left ventricular systolic function is severely decreased. Inferior and inferolateral wall akinesis. LVEF is 25%. Right ventricle is moderately hypokinetic. Left atrium is severely dilated. Aortic valve is trileaflet; mildly calcified. Trace regurgitation, no stenosis. The mitral valve is normal in structure. Moderately severe to severe mitral regurgitation Mild to moderate tricuspid regurgitation. Estimated pulmonary artery pressure of 55-60mmHg. There is no pericardial effusion. ��������������������������������������������� <ELECTRONICALLY SIGNED> ���������������������������������������� By: Domingo Bright MD, FACC ��������������������������������������������� 01/10/19832 2 2 Domingo Bright MD, [facility] /INF
--- NOTE | 2019-01-10 10:37 | NUR ---
DIscharge Planning: DP faxed updates to [facility], (patient is from there). DP will make sure they are holding a bed for her and they received updates.
--- NOTE | 2019-01-10 12:04 | NUR ---
INITIAL ASSESSMENT: GITA reviewed chart and spoke with nursing. Pt was admitted from [facility] due to acute respiratory failure/pulmonary edema. Pt is currently intubated and sedated. GITA met with pt's dtr outside of pt's room. Introduced role of SW. Pt with hx of dementia and CHF. Pt has lived at [facility] for about 5 years. 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 Pt's PCP is Dr. Valencia. Family states that plan is for pt to return to [facility]. materials planner/production planner to fax updates to [facility] for review. GITA is following to assist as needed with discharge planning.
--- NOTE | 2019-01-10 12:57 | EKG ---
[address] [address] [place] [address] ELECTROCARDIOGRAM REPORT Name: YONASVONNIE Room #: 246-P ADM IN M.R.#: [id number] ������������������ Admission: 01/09/19 ������������������ Attend Phys: Sarah Valencia MD Discharge: ������������������ Date of : 32 Report #: [id number] ����������������������������������������������������������������� [id number] THIS REPORT FOR: //name// [facility] Test Date: 2019-01-10 Test Time: 05:28:05 Pat Name: VONNIE BRANHAM Department: Room: 246 P Gender: F Kaiawhina Kura Kaupapa Maori: [id number] : 1930 Requested By: Vamshi Vega Order Number: [id number] MD: Domingo Bright Measurements Intervals [place] Rate: 128 P: IA: QRS: -70 QRSD: 155 T: 103 QT: 364 QTc: 532 Interpretive Statements Atrial fibrillation LVH with IVCD, LAD and secondary repol abnrm Right bundle branch block Left anterior hemiblock Compared to ECG 01/09/2019 05:55:10 Atrial fibrillation has replaced sinus rhythm Electronically Signed On 01-10-2019 12:57:35 CDT by Domingo Bright [email or web address] ��������������������������������������������� <ELECTRONICALLY SIGNED> ���������������������������������������� By: Domingo Bright MD, [facility] ��������������������������������������������� 01/10/19 1257 0528 0528 Domingo Bright MD, [facility] /EPI
--- NOTE | 2019-01-10 18:32 | NUR ---
shift summary notes; Pt was sleeping most of time except sedation vacation time; pt was alert and followed commands during sedation vacation, Executive Sales Assistant was equal. OG tube in place. On vent. Propofol was titirated after sedation vacation to 30mcg/kg/min. Coarse LS. SR w/ brief a. fib on & off. Amiodarone on 0.5mg/kg. Blood tinged suptum was present on suction.
[2019-01-11] VITALS (23 sets, daily range): BP systolic 110–152; BP diastolic 45–67
--- NOTE | 2019-01-11 03:55 | NUR ---
ASSUMED CARE OF PATIENT AT 1900. VSS, HR IRREGULAR THROUGH THE NIGHT. SUCTIONED FREQUENTLY FOR COPIOUS SECRETIONS. SEDATION VACATION DONE, OPENS EYES, SQUEEZES HANDS. DAUGHTER CALLED, UPDATED ON PATIENTS POC. ALL QUESTIONS ANNSWERED. WORKING TOWARDS POC GOALS.
[2019-01-11 09:51] LABS: HCO3 30.5 mmol/L (22.0-26.0); PO2 67.7 mmHg (80.0-100.0); pH 7.412 (7.360-7.450); sO2 93.5 % (92.0-98.0)
[2019-01-11 10:47] LABS: CALCIUM 9.5 mg/dL (8.5-10.1); CREATININE 0.9 mg/dL (0.6-1.0); POTASSIUM 3.1 mmol/L (3.5-5.1)
--- NOTE | 2019-01-11 14:10 | NUR ---
SW reviewed chart and spoke with nursing. Pt remains intubated and sedated. Pt in bilateral wrist restraints. Pt is from [facility]. Info sent to [facility] for review yesterday. GITA is following to assist as needed with discharge planning.
--- NOTE | 2019-01-11 19:16 | NUR ---
ASSUMED CARE THIS AM, SEDATED ON VENT. DURING SEDATION VACATION, PATIENT OPENS EYES, ANSWERS YES/NO QUESTION SEEMINGLY APPROPRIATELY, AND FOLLOWS COMMANDS. NO APPARENT PAIN. ABG DONE AND PO2 LOW. NO CPAP WEANS ORDERED TODAY. SPOKE WITH DAUGHTER MAGUI AT LENGTH WHO IS THE DPOA AND IT SEEMS THE FAMILY IS LEANING TOWARDS WITHDRAWL BECAUSE THEY DON'T THINK THEIR MOTHER WOULD WANT TO BE ON VENTILATOR.
[2019-01-11 20:08] LABS: BE(vivo) 6.3 mmol/L (-2 to +3); HCO3 30.1 mmol/L (22.0-26.0); PCO2 39.9 mmHg (35.0-45.0); PO2 127.1 mmHg (80.0-100.0); pH 7.495 (7.360-7.450); sO2 98.8 % (92.0-98.0)
[2019-01-12] VITALS (32 sets, daily range): BP systolic 87–153; BP diastolic 35–72
--- NOTE | 2019-01-12 06:15 | NUR ---
RECEIVED REPORT FROM [facility]ANG AND ASSUMED PATIENT CARE AT 1900. PATIENT LYING IN THE BED AND IS ON THE VENTILATOR. PROPOFOL IS INFUSING. PATIENT FOLLOWS COMMANDS ON SEDATION VACATION. VSS. HOURLY ROUNDING COMPLETED AND ASSESSESSMENTS CHARTED PER PROTOCOL. PATIENT DOES NOT SHOW ANY CHANGES ON PROGRESSING TOWARD GOAL.
[2019-01-12 09:12] LABS: BE(vivo) 5.7 mmol/L (-2 to +3); PCO2 48.7 mmHg (35.0-45.0); PO2 116.3 mmHg (80.0-100.0); pH 7.422 (7.360-7.450); sO2 98.3 % (92.0-98.0)
[2019-01-12 15:23] LABS: ABSOLUTE NEUTROPHILS 6.6 thou/uL (1.4-8.2); BASOPHILS 0.2 % (0.0-2.0); HEMATOCRIT 31.6 % (37.0-47.0); HEMOGLOBIN 10.6 gm/dL (12.0-15.0); LYMPHOCYTES 10.1 % (24.0-44.0); MCH 30.7 pg (26.0-34.0); MCHC 33.6 g/dL (28.0-37.0); MCV 91.3 fL (80.0-100.0); MONOCYTES 6.4 % (1.0-8.0); PLATELET COUNT 188 thou/uL (150-400); POLYS 83.3 % (36.0-66.0); RBC 3.45 mil/uL (4.20-5.00); RDW 15.5 % (10.5-14.5); WBC 7.9 thou/uL (4.0-11.0)
[2019-01-12 15:30] LABS: CALCIUM 8.7 mg/dL (8.5-10.1); POTASSIUM 3.2 mmol/L (3.5-5.1)
--- NOTE | 2019-01-12 16:50 | NUR ---
REMAINS SEDATED AND VENTILATED ON PROPROFOL. TURNED EVERY TWO HOURS. LOCKE TO DD WITH CLEAR YELLOW URINE OUTPUT. REMAINS IN SOFT WRIST RESTRAINTS TO PREVENT FROM PULLING TUBES. RIGHT UPPER ARM I TRIPLE LUMEN INTACT. FAMILY CALLED TO CHECK ON HER. ORAL CARE PROVIDED EVERY 2 HOURS AND SUCTIONED FOR CLEAR SECRETIONS.
[2019-01-13] VITALS (23 sets, daily range): BP systolic 115–153; BP diastolic 45–64
--- NOTE | 2019-01-13 04:59 | NUR ---
ASSUMED PATIENT CARE AT 1900. PATIENT STILL ON VENTILATOR WITH PROPOFOL INFUSING. DURING SEDATION VACATION, PATIENT SQUEEZED THIS RN'S HAND. SPOKE TO DR. SALGADO AND RECEIVED ORDER FOR A ONE-TIME 500 ML BAG OF FLUID D/T PATIENT HAVING INADEQUATE URINE OUTPUT DESPITE RECEIVING LASIX TID. HOURLY ROUNDING COMPLETED. NO CHANGES IN STATUS.
[2019-01-13 05:22] LABS: BE(vivo) 3.5 mmol/L (-2 to +3); HCO3 28.5 mmol/L (22.0-26.0); PCO2 45.1 mmHg (35.0-45.0); PO2 126.4 mmHg (80.0-100.0); pH 7.418 (7.360-7.450); sO2 98.5 % (92.0-98.0)
[2019-01-13 05:32] LABS: ABSOLUTE NEUTROPHILS 7.9 thou/uL (1.4-8.2); BASOPHILS 0.2 % (0.0-2.0); HEMATOCRIT 30.6 % (37.0-47.0); HEMOGLOBIN 10.3 gm/dL (12.0-15.0); LYMPHOCYTES 8.4 % (24.0-44.0); MCH 30.6 pg (26.0-34.0); MCHC 33.6 g/dL (28.0-37.0); MCV 91.3 fL (80.0-100.0); PLATELET COUNT 182 thou/uL (150-400); POLYS 86.4 % (36.0-66.0); RBC 3.35 mil/uL (4.20-5.00); RDW 15.6 % (10.5-14.5); WBC 9.1 thou/uL (4.0-11.0)
[2019-01-13 05:46] LABS: ALBUMIN 2.7 g/dL (3.4-5.0); CALCIUM 8.5 mg/dL (8.5-10.1); CREATININE 0.9 mg/dL (0.6-1.0); POTASSIUM 3.8 mmol/L (3.5-5.1); TOTAL BILIRUBIN 0.4 mg/dL (<0.1-1.0); TOTAL PROTEIN 6.1 g/dL (6.4-8.2)
--- NOTE | 2019-01-13 08:51 | NUR ---
If starting enteral nutrition, recommend vital AF 1.2 at goal of 50ml/hr
[2019-01-13 13:56] LABS: BE(vivo) 3.7 mmol/L (-2 to +3); PCO2 47.4 mmHg (35.0-45.0); PO2 105.3 mmHg (80.0-100.0); pH 7.405 (7.360-7.450); sO2 97.8 % (92.0-98.0)
--- NOTE | 2019-01-13 19:23 | NUR ---
ASSUMED CARE THIS AM. SEDATED AND VENTILATED. OPENED EYES ON SEDATION BUT DID NOT FOLLOW COMMANDS. DURING SEDATION VACATION AND CPAP WEAN, FOLLOWED COMMANDS AND NOD HEAD TO YES/NO QUESTIONS APPROPRIATELY. FOLLOWING 2 HOUR WEAN AND ABG, UNABLE TO MAINTAIN VOLUMES SO NO EXTUBATION. DAUGHTER UPDATED ON CONDITION AND PLAN OF CARE. TUBE FEEDS STARTED THIS PM TO OGT.
[2019-01-14] VITALS (24 sets, daily range): BP systolic 121–157; BP diastolic 43–67
[2019-01-14 05:11] LABS: ABSOLUTE NEUTROPHILS 8.3 thou/uL (1.4-8.2); BASOPHILS 0.1 % (0.0-2.0); HEMATOCRIT 31.4 % (37.0-47.0); HEMOGLOBIN 10.5 gm/dL (12.0-15.0); LYMPHOCYTES 6.5 % (24.0-44.0); MCH 30.7 pg (26.0-34.0); MCHC 33.4 g/dL (28.0-37.0); MCV 91.8 fL (80.0-100.0); MONOCYTES 8.1 % (1.0-8.0); PLATELET COUNT 197 thou/uL (150-400); POLYS 85.3 % (36.0-66.0); RBC 3.42 mil/uL (4.20-5.00); WBC 9.8 thou/uL (4.0-11.0)
[2019-01-14 05:31] LABS: ALBUMIN 2.8 g/dL (3.4-5.0); CALCIUM 8.5 mg/dL (8.5-10.1); POTASSIUM 3.1 mmol/L (3.5-5.1); TOTAL BILIRUBIN 0.5 mg/dL (<0.1-1.0); TOTAL PROTEIN 6.3 g/dL (6.4-8.2)
[2019-01-14 05:47] LABS: BE(vivo) 3.9 mmol/L (-2 to +3); HCO3 30.1 mmol/L (22.0-26.0); PO2 104.8 mmHg (80.0-100.0); pH 7.372 (7.360-7.450); sO2 97.6 % (92.0-98.0)
--- NOTE | 2019-01-14 07:47 | NUR ---
PT INTUBATED AND ON VENT; SEDATED WITH PROPOFOL. ON PROPOFOL, PT OPENS EYES AND FOLLOWS FEW, SIMPLE COMMANDS. 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 PT REMAINS ON AMIO GTT AT 0.25 MG/MIN, PER DR. COFFMAN. 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 PT'S HR IN HIGH 50s/60s OVERNIGHT, BUT PT IS BECOMING MORE BRADYCARDIC THIS MORNING. POTASSIUM LOW THIS MORNING, REPLACEMENT INITIATED PER ELECTROLYTE PROTOCOL. PT TOLERATING TUBE FEEDS MOST OF THE NIGHT, WITH HIGHER RESIDUAL THIS MORNING. RATE WAS NOT INCREASED AT 0400 D/T HIGHER RESIDUAL. WILL CONTINUE TO MONITOR.
--- NOTE | 2019-01-14 11:32 | NUR ---
progress notes Pt opened her eyes, based on touching and calling her name. Followed commands by squeezing this nurse's fingers and moved her feet. CVP was on hold due to antibiotics this morning. 1000-This nurse started a peripheral IV on her L wrist and connected the antibiotics to the site. CVP was resumed. Pt had magda TURNER modearte amt. 1130-The other RN, Moise, preceptor of this nurse notified Dr. Josue re pt's bradycardia (down to 40s) and stopped the Amiodarone per order at this time. Dr. Josue ordered low dose of SS too.
[2019-01-14 14:25] LABS: BE(vivo) 2.3 mmol/L (-2 to +3); HCO3 27.4 mmol/L (22.0-26.0); PCO2 44.8 mmHg (35.0-45.0); PO2 108.1 mmHg (80.0-100.0); pH 7.404 (7.360-7.450); sO2 97.9 % (92.0-98.0)
[2019-01-15] VITALS (24 sets, daily range): BP systolic 134–163; BP diastolic 44–78
[2019-01-15 05:09] LABS: BE(vivo) 8.4 mmol/L (-2 to +3); PCO2 51.9 mmHg (35.0-45.0); PO2 91.6 mmHg (80.0-100.0); pH 7.434 (7.360-7.450); sO2 97.1 % (92.0-98.0)
--- NOTE | 2019-01-15 07:43 | NUR ---
NO CHANGES OVERNIGHT. PT EXTUBATED YESTERDAY AFTERNOON AND TOLERATED 2L O2 PER NC OVERNIGHT. PT DENIES PAIN. PT HAS A HX OF DEMENTIA AND IS CONFUSED, OFTEN ASKING "WHY" WE DO CERTAIN THINGS. PT WAS REORIENTED MULTIPLE TIMES, BUT DID NOT UNDERSTAND WHY SHE WAS HERE OR WHY WE WERE GIVING HER ANY OF THE MEDICATIONS, ALTHOUGH EXPLAINED NUMEROUS TIMES. SPEECH THERAPY CONSULTED TO EVALUATE PT'S SWALLOWING. WILL CONTINUE TO MONITOR.
--- NOTE | 2019-01-15 17:56 | NUR ---
ASSUMED CARE @ 0700 01/15/19, PT ASSESSMENT AND VSS COMPLETE PER ICU PROTOCOL. PT ALERT TO SELF ONLY, PT CONSTANTLY REPEATS HERSELF, PT ABLE TO FOLLOW SOME COMMANDS TO BEST ABILITY. PT ON 2L OF 02 SATS IN THE 90'S, BIPAP PRN, PT NOT NEEDED BIPAP SO FAR. PT IN MULTIPLE RHYTHMS DURING THE SHIFT, PLEASE SEE PROCESS INTERVENTIONS FOR SPECIFICS. PT KEPT NPO PENDING SPEECH-SWALLOW EVAL AND TREATMENT DUE TO HX OF CVA AND POSSIBLE ASPIRATION PNEUMONIA PER DR COFFMAN. CHUCKY STILL IN PLACE, GOP NOTED. FAMILY HERE AT BEDSIDE TO VISIT WITH. PLAN OF CARE- CONT TO MONITOR.
[2019-01-16] VITALS (20 sets, daily range): BP systolic 103–184; BP diastolic 48–75
--- NOTE | 2019-01-16 02:28 | NUR ---
ASSUMED CARE OF PT. AT 1900. ASSESSMENTS AND VITAL SIGNS CHARTED. NO NEW CHANGES. REPORT GIVEN TO CASH RAMIREZ AT 0000.
--- NOTE | 2019-01-16 05:18 | NUR ---
ASSUMED CARE FROM STELLA RAMIREZ @ 0000. NO SIGNIFANT CHANGES DURING SHIFT. PLANS ARE SPEECH EVAL TODAY. CONTINUE TO MONITOR
--- NOTE | 2019-01-16 10:12 | NUR ---
DISCHARGE PLANNING; SENT UPDATES ON PATIENT TO [facility], PATIENT IS NOW EXTUBATED SINCE 01/14. THERAPY ORDERS HAVE BEEN PUT IN AND DP WILL SEND TO [facility] ONCE IN. LEN CONTACTED LINDA TO LET HIM KNOW TO EXPECT UPDATES.
--- NOTE | 2019-01-16 14:13 | NUR ---
FOLLOWING FOR DC PLANNING, REVIEWED CLINICAL INFO. PT EXTUBATED 01/13 AND NOW ON 2-3 LITER O2 PER NC. NPO SINCE EXTUBATION AND ST SAW TODAY FORO SWALLOW EVAL AND COG EVAL. NO OVERT SIGNS OF ASPIRATION BUT SATS DROP BELOW 90 AND [address] REST BREAKS. [address] RECOMMENDATION FOR PUREED DIET WITH THIN LIQUIDS AND CONTINUOUS SUPERVISION, SITTING UPRIGHT, NO STRAWS WHILE EATING AND DRINKING. MAY NEED VIDEO SWALLLOW IF CXR NOT IMPROVING. PT/OT REORDERED. DC AUTOMATIC DRY STARCH OPERATOR ASKED TO FAXED UPDATED CLINICAL AND NOTIFY [facility] ADMISSIONS. PT RESIDES IN LTC AT FACILITY AND PLANS TO RETURN SKILLED AT DC.
--- NOTE | 2019-01-16 16:37 | NUR ---
shift summary: Pt was alert and greeted this nurse. Oriented x 1. Pt asked why she could not have food this morning. Speech therapist was at bedside and evaluated pt's swallowing and ordered pureed diet since pt's oxygen was down to low side of 80s. Pt could not feed herself and need assist for eating. Pt is on NC w/ 3L. No edema was noticed from her UE and LE. Skin was intact. Fecal system in place but there was leaking. Pt wanted to get out of bed this afternoon and Dr. Valencia requested PT/OT eval. CXR done this morning.
--- NOTE | 2019-01-16 18:31 | NUR ---
1715-The daughter of pt came by and concerns about pt's fingers and arm, gurinder. The daughter thought pt lost strength of L arm and fingers. This nurse assessed pt and pt could stretched out her fingers, gurinder coulpe of times then could slowly doughnut icer machine the spoon correctly. Pt could not use spoon for lunch time. PT/OT eval order in place.
[2019-01-17] VITALS: BP 120/61
--- NOTE | 2019-01-17 01:51 | NUR ---
ASSESSMENT: PT REMAIN ALERT AND ORIENT TIMES TWO. CONFUSED TO SITUATION AND TIME. PT CONSTANTLY ASK PPL TO TAKE HER HOME. PT'S DAUGHTER WAS AT THE BEDSIDE EARLIER DID NOT STAY LONG. FECAL SYSTEM IS LEAKING SMALL AMTS OF STOOL. STOOL IS LIQUID, BROWN AND THIN. LOCKE PATENT WITH YELLOW URINE OUTPUT. VSS, AFEBRILE. TOLERATING PO INTAKE. DOES HAVE A PRODUCTIVE COGH, THIN BEIGE OUTPUT. PT HAS BEEN ENCOURAGED TO SPIT INTO A KLENNEX. SR PER MONITOR. SLOW PROGRESS TOWARDS DC GOALS, WILL CONTINUE TO MONITOR.
[2019-01-17 04:00] VITALS: BP 124/71
[2019-01-17 04:02] VITALS: BP 124/71
[2019-01-17 04:25] LABS: CALCIUM 9.3 mg/dL (8.5-10.1); CREATININE 1.5 mg/dL (0.6-1.0)
[2019-01-17 04:30] LABS: HEMATOCRIT 37.6 % (37.0-47.0); MCH 29.7 pg (26.0-34.0); MCHC 32.1 g/dL (28.0-37.0); MCV 92.6 fL (80.0-100.0); POTASSIUM 2.6 mmol/L (3.5-5.1); RBC 4.06 mil/uL (4.20-5.00); RDW 16.3 % (10.5-14.5); WBC 19.7 thou/uL (4.0-11.0)
[2019-01-17 08:01] VITALS: BP 132/63
[2019-01-17 12:01] VITALS: BP 119/65
[2019-01-17 17:08] LABS: CALCIUM 9.7 mg/dL (8.5-10.1); POTASSIUM 3.8 mmol/L (3.5-5.1)
--- NOTE | 2019-01-17 18:49 | NUR ---
ASSUMED CARE THIS AM. AWAKE AND FOLLOWING COMMANDS. NO COMPLAINTS OF PAIN OR NAUSEA. AFIB ON MONITOR, RATE 80-100. ORIENTED TO SELF AND KNOWS SHE IS IN THE HOSPITAL BUT SOMETIMES DOES NOT KNOW WHAT HOSPITAL. REORIENTED TO TIME AND PLACE. FECAL MANAGEMENT TUBE PATENT AND SECURE. 1230: RN AND OT ASSISTED PATIENT TO CHAIR WITH GAIT BELT AND FULL LIFT. PATIENT DOES NOT WALK AND IS WHEELCHAIR DEPENDENT. SKIN INTACT. 1730: RN X 4 ASSISTED PATIENT BACK TO BED WITH GAIT BELT AND FULL LIFT. LOCKE CATHERTER REMOVED AND PUREWICK FEMALE EXTERNAL CATHERTER PLACED TO LOW SUCTION.
[2019-01-17 20:10] VITALS: BP 105/59
--- NOTE | 2019-01-17 21:01 | NUR ---
1900-ASSUMMED CARE OF PT.--VW 2029-CARE TURNED OVER TO ONCOMING RN.--VW
[2019-01-18] VITALS (10 sets, daily range): BP systolic 98–122; BP diastolic 41–68
--- NOTE | 2019-01-18 04:56 | NUR ---
ASSUMED CARE OF PATIENT AT 1999. VSS, AFEBRILE. MUCH MORE ALERT, STILL ONLY ORIENTED TO PERSON. TURNED Q2. DR SALGADO CALLED TO CLARIFY FLUID ORDERS. FECAL MANAGEMENT SYSTEM REMAINS IN PLACE. LOW URINE OUTPUT. REQUESTING WATER. SIPS IT WELL. SLEEPING WELL THROUGH THE NIGHT. PROGRESSING TOWARDS POC GOALS.
[2019-01-18 04:57] LABS: CALCIUM 9.3 mg/dL (8.5-10.1); CREATININE 2.2 mg/dL (0.6-1.0); POTASSIUM 3.8 mmol/L (3.5-5.1)
[2019-01-18 14:37] LABS: ALBUMIN 2.5 g/dL (3.4-5.0); CALCIUM 8.9 mg/dL (8.5-10.1); CREATININE 2.4 mg/dL (0.6-1.0); POTASSIUM 4.1 mmol/L (3.5-5.1); TOTAL BILIRUBIN 0.2 mg/dL (<0.1-1.0); TOTAL PROTEIN 5.6 g/dL (6.4-8.2)
[2019-01-19] VITALS (7 sets, daily range): BP systolic 105–129; BP diastolic 46–74
[2019-01-19 06:30] LABS: HEMATOCRIT 31.3 % (37.0-47.0); HEMOGLOBIN 10.3 gm/dL (12.0-15.0); MCH 30.1 pg (26.0-34.0); MCHC 32.8 g/dL (28.0-37.0); MCV 91.8 fL (80.0-100.0); RBC 3.41 mil/uL (4.20-5.00); RDW 16.4 % (10.5-14.5)
[2019-01-19 06:41] LABS: CALCIUM 8.5 mg/dL (8.5-10.1); CREATININE 2.3 mg/dL (0.6-1.0); POTASSIUM 3.4 mmol/L (3.5-5.1)
--- NOTE | 2019-01-19 07:27 | NUR ---
NO CHANGES OVERNIGHT. PT CONTINUES TO HAVE LOW URINE OUTPUT, WITH A TOTAL OF 175 CC OUT OVERNIGHT. CREATININE 2.3 THIS MORNING. CONTINUES TO BE IN A FIB WITH A CONTROLLED RATE. CONFUSED, HAS A HX OF DEMENTIA. PT REPEATEDLY VOICES THAT SHE DOES NOT WANT TO BE BOTHERED AND WANTS TO BE LEFT ALONE. PT IS NOT PROGRESSING. WILL CONTINUE TO MONITOR.
--- NOTE | 2019-01-19 18:14 | NUR ---
PT TRANSFERRED FROM ICU INTO ROOM 421 AT 14:20 VIA CART IN STABLE CONDITION. ALERT TO SELF ONLY, HX DEMENTIA. DENIES PAIN. ROOM AIR. LOCKE CATHETER IN PLACE TO MONITOR STRICT I&O. FECAL MANAGEMENT SYSTEM IN PLACE, LOOSE BROWN STOOL NOTED. MAINTAINING MRSA PRECAUTIONS. HIGH FALL PRECAUTIONS IN PLACE. DAUGHTER AT BEDSIDE THIS EVENING, INVOLVED IN PT POC. VSS.
--- NOTE | 2019-01-20 03:39 | NUR ---
PATIENT ALERT AND ORIENTED XSELF. WILL RESPOND TO QUESTIONS APPROPRIATELY AT TIMES. REMAINS IN BED. DENIES PAIN. SLEPT LITTLE THIS SHIFT. ALWAYS ASKING QUESTIONS. WANTS TO KNOW WHAT IS GOING ON. PIV IN LL ARM CAME OUT. HAS TL PICC.
[2019-01-20 05:02] VITALS: BP 117/71
[2019-01-20 06:04] LABS: HEMATOCRIT 29.6 % (37.0-47.0); HEMOGLOBIN 9.9 gm/dL (12.0-15.0); MCH 30.3 pg (26.0-34.0); MCHC 33.5 g/dL (28.0-37.0); MCV 90.5 fL (80.0-100.0); RBC 3.27 mil/uL (4.20-5.00); RDW 16.1 % (10.5-14.5); WBC 10.6 thou/uL (4.0-11.0)
[2019-01-20 06:10] LABS: CALCIUM 8.8 mg/dL (8.5-10.1); CREATININE 2.4 mg/dL (0.6-1.0); POTASSIUM 3.7 mmol/L (3.5-5.1)
[2019-01-20 07:44] VITALS: BP 130/79
--- NOTE | 2019-01-20 08:23 | NUR ---
PT TRANSFERRED OUT OF ICU TO M/S ON 4E 01/19/19. CREATININE SLOWLY INCREASING. MORE STABLE FROM PULM STANDPOINT. PT RESIDES IN LTC AT [facility]. DTR IN NEXT OF KIN. UPDATE TO 4E RN AND SWS SOFTWARE PERFORMANCE ENGINEER.
--- NOTE | 2019-01-20 14:22 | NUR ---
FAXED CLINICAL UPDATE TO [facility] PT RESIDES AT THEIR LTC SPOKE WITH DELIA SHE RECEIVED UPDATE. DCP TO FOLLOW.
[2019-01-20 15:14] VITALS: BP 147/76
[2019-01-20 19:20] VITALS: BP 147/83
--- NOTE | 2019-01-21 04:06 | NUR ---
ASSESSMENT COMPLETED.PT DENIED PAIN SO FAR.BG MONITORED ORDERED,NO TX NEEDED AT HS.PT REPOSITIONED WHILE IN BED.FECAL MGT IN PLACE WITH LOOSE BROWN STOOLS.LOCKE CATH TO DD.PT CONT ON IVF AND IV ABX ORDERED.SCD'S ON BLE.PT SLEEPING ON HER BED AT THIS TIME.FALL AND ISOALTION PRECAUTIONS MAINTAINED.CALL LIGHT WITHIN REACH.
[2019-01-21 04:50] VITALS: BP 148/75
[2019-01-21 06:37] LABS: HEMATOCRIT 29.6 % (37.0-47.0); HEMOGLOBIN 9.9 gm/dL (12.0-15.0); MCH 30.5 pg (26.0-34.0); MCHC 33.4 g/dL (28.0-37.0); MCV 91.2 fL (80.0-100.0); RBC 3.24 mil/uL (4.20-5.00); RDW 16.7 % (10.5-14.5); WBC 14.3 thou/uL (4.0-11.0)
[2019-01-21 06:43] LABS: CREATININE 2.7 mg/dL (0.6-1.0); POTASSIUM 3.8 mmol/L (3.5-5.1)
[2019-01-21 07:30] VITALS: BP 127/80
--- NOTE | 2019-01-21 15:33 | NUR ---
Pt in bed resting and sometimes sleeping.Assessment completed.vss.Turned and repositioned pt q2h in bed for comfort.Complete bed bath given early this shift with bed change.Pt fed pt at all meals.Fair appetite noted.Received call from pt's dtr,updates given.Both andrews and fecal management patent.No distress s/s noted.Will continue to monitor.
[2019-01-21 16:19] VITALS: BP 146/70
[2019-01-21 20:10] VITALS: BP 131/71
[2019-01-22 03:15] VITALS: BP 122/66
--- NOTE | 2019-01-22 03:37 | NUR ---
PATIENT ALERT AND ORIENTED X3 WITH CONFUSION. IVF INFUSING W/O COMPLICATION. PATIENT WILL FOLLOW SPECIFIC DIRECTIONS. LOCKE TO D/D WITH YELLOW URINE. FECAL TUBE MONITORED PER PROTOCOL. BLOOD SUGAR AT HS WAS 129 WITH NO INSULIN NEEDED. TOLERATED MEDICATION PO W/O CRUSHING. REMAINS ON ISOLATION - CONTACT. RESTING QUIETLY. WILL MONITOR.
--- NOTE | 2019-01-22 04:23 | NUR ---
THIS NURSE HAD TO DISCONTINUE PATIENT'S RECTAL TUBE DUE TO HER STOOL BECOMING TOO THICK AND PASTY TO PASS THROUGH THE TUBE. THIS WAS DONE AT 0410 TODAY. PATIENT TOLERATED WELL.
[2019-01-22 06:41] LABS: HEMOGLOBIN 8.6 gm/dL (12.0-15.0); MCH 30.7 pg (26.0-34.0); MCHC 33.2 g/dL (28.0-37.0); MCV 92.4 fL (80.0-100.0); RBC 2.81 mil/uL (4.20-5.00); RDW 16.4 % (10.5-14.5); WBC 13.2 thou/uL (4.0-11.0)
[2019-01-22 06:50] LABS: CALCIUM 8.9 mg/dL (8.5-10.1); CREATININE 3.1 mg/dL (0.6-1.0); POTASSIUM 3.5 mmol/L (3.5-5.1)
[2019-01-22 07:13] VITALS: BP 120/60
[2019-01-22 16:37] VITALS: BP 149/56
--- NOTE | 2019-01-22 18:11 | NUR ---
Assumed pt care at 7am.Turned and repositioned pt q2h for comfort.Complete bath and bed change done today after breakfast.Pt wanted to know if her dtr will be coming to see her today.Rn told pt that it might be later this evening after.Pt refused lunch and also supplement.Event Decorator will feed pt at dinner.Dr Tipton here,order noted.No distress s/s noted.Will continue to monitor.
--- NOTE | 2019-01-22 23:25 | NUR ---
PT DENIED PAIN SO FAR.PT HAD A SOFT FORMED LARGE BM,PERICARE DONE.PT REPOSITIONED IN BED.LOCKE CATH TO DD.DR MORIN HERE TO SEE PT,ORDER NOTED FOR ONETIME LASIX,ORDER CARRIED OUT.FALL AND ISOLATION PRECAUTIONS MAINTAINED.CALL LIGHT WITHIN REACH.
[2019-01-23 05:17] VITALS: BP 138/67
[2019-01-23 06:49] LABS: HEMATOCRIT 26.9 % (37.0-47.0); MCH 30.8 pg (26.0-34.0); MCHC 33.5 g/dL (28.0-37.0); MCV 92.1 fL (80.0-100.0); RBC 2.93 mil/uL (4.20-5.00)
[2019-01-23 07:01] LABS: CALCIUM 9.1 mg/dL (8.5-10.1); CREATININE 3.1 mg/dL (0.6-1.0); POTASSIUM 3.2 mmol/L (3.5-5.1)
[2019-01-23 08:00] VITALS: BP 143/71
[2019-01-23 12:29] LABS: URINE BILIRUBIN NEGATIVE (Negative); URINE BLOOD 2+ (Negative); URINE CLARITY SL CLOUDY; URINE COLOR YELLOW; URINE GLUCOSE-RANDOM* NEGATIVE (Negative); URINE KETONES NEGATIVE (Negative); URINE LEUKOCYTES 2+ (Negative); URINE NITRITE NEGATIVE (Negative); URINE PROTEIN (DIPSTICK) TRACE (Negative); URINE SPECIFIC GRAVITY 1.015 (1.005-1.035); URINE UROBILINOGEN 0.2 E.U./dl (0.2-1.0)
[2019-01-23 12:37] LABS: CASTS None Seen /LPF (None Seen); SQUAMOUS 0-3 Few /LPF (0-3)
[2019-01-23 12:38] LABS: BACTERIA 1-9 Few /HPF (None Seen); CRYSTALS None Seen /LPF (None Seen); URINE RBC 0-2 Rare /HPF (0-2); URINE WBC 6-15 Few /HPF (0-5); WBC CLUMPS Few (None Seen); YEAST Present (None Seen)
[2019-01-23 16:00] VITALS: BP 151/91
--- NOTE | 2019-01-23 16:19 | NUR ---
PT CONT ON IV ABX VANCO & ZOSYN WELL IV FLUIDS. PT WILL HAVE LABS IN THE AM. PLAN REMAINS TO RETURN TO [facility] ONCE MEDICALLY STABLE.
[2019-01-23 19:31] VITALS: BP 157/75
--- NOTE | 2019-01-23 19:46 | NUR ---
ASSUMED CARE OF PT AT 0700. ASSESSMENT CHARTED. PT A&O TO PERSON AND PLACE. DENIES PAIN. FUSSY AT TIMES AND IRRITABLE TO STAFF. DECREASED APPEPTITE NOTED. LOW URINE OUTPUT. DAUGHTER INVOLVED IN CARE AND EXPRESSES CONCERNS ABOUT HER MOM NOT PROGRESSING TOWARDS GOALS. DR. SALGADO NOTIFIED OF DAUGHTER'S CONCERNS FOR DEBILITY IN LEFT HAND. IV TEAM ADMINISTERED CATHFLOW TO PICC LINE TODAY. LOCKE IN PLACE. LOOSE STOOLS NOTED. VSS. NO OTHER CHANGE IN PT CONDITION.
[2019-01-24 03:30] VITALS: BP 157/54
--- NOTE | 2019-01-24 05:30 | NUR ---
Assumed pt care at 1900. Pt alert to self and place but able to make needs known. Denies pain on assessment,VSS. Snack offered at HS but pt declined. Up patent draining yellow urine,no diarrhea this shift. IVF infusing via RUE PICC without problems,lumens are sluggish to flush white port with blood return. Contact isolation maintained. Fall precautions in place will continue to monitor pt.
[2019-01-24 06:04] LABS: ALBUMIN 2.7 g/dL (3.4-5.0); CALCIUM 8.8 mg/dL (8.5-10.1); CREATININE 3.3 mg/dL (0.6-1.0); PHOSPHORUS 5.4 mg/dL (2.5-4.9); POTASSIUM 3.3 mmol/L (3.5-5.1)
[2019-01-24 07:30] VITALS: BP 143/89
--- NOTE | 2019-01-24 11:55 | NUR ---
ASSUMED CARE OF PT AT 0700. ASSESSMENT CHARTED. PT A&O TO SELF AND PLACE ONLY, HX DEMENITA. FLAT AND FUSSY AT TIMES. DR. RUTH AT BEDSIDE THIS AM. EXPRESSED DAUGHTER'S CONCERNS TO PHYSICIAN, PHYSICIAN AWARE. DR. SALGADO TO CALL DTR. PT NOT PROGRESSING TOWARDS GOALS. LABORED BREATHING NOTED, 2 L NC APPLIED FOR COMFORT AND TO KEEP SATS ABOVE 92%. LOCKE IN PLACE, LOW URINE OUTPUT NOTED. IVF D/C TODAY. WILL CONTINUE TO MONITOR UNTIL EOS.
--- NOTE | 2019-01-24 14:51 | NUR ---
S/W DTR MAGUI OUTSIDE OF PT'S ROOM AND OFFERED HOSPICE CHOICES AFTER S/W S.WGrace WHITAKER AT [facility]. THEY USE [facility], [facility], [facility], [facility]. DTR MAGUI WISHES TO USE [facility]. WILL ASK DC HIGH SCHOOL LIBRARIAN TO ALERT [facility]. DTR WANTS TO RIDE IN THE WC VAN WITH HER MOM.
[2019-01-24 15:45] VITALS: BP 153/72
[2019-01-24 19:24] VITALS: BP 143/88
[2019-01-24] MEDS ORDERED: MORPHINE S100 MG/5 M PO (20:12)
[2019-01-25 04:18] VITALS: BP 110/68
[2019-01-25 04:35] VITALS: BP 125/66
--- NOTE | 2019-01-25 05:44 | NUR ---
Assumed pt care at 1900.Alert to self and place,gets fussy with cares stating "leave me alone".Pt with labored breathing HR 143,medicated with Morphine with relief noted HR 88 with even non-labored breathing.O2 @ 2L/NC.Up patent with yellow urine,has low output/intake. PICC line patent on RUE sluggish to flush. Contact isolation maintained. Fall precautions in place will continue to monitor pt.
[2019-01-25 06:05] LABS: ALBUMIN 2.5 g/dL (3.4-5.0); CALCIUM 8.7 mg/dL (8.5-10.1); CREATININE 3.3 mg/dL (0.6-1.0); PHOSPHORUS 6.3 mg/dL (2.5-4.9); POTASSIUM 3.8 mmol/L (3.5-5.1)
[2019-01-25 07:50] VITALS: BP 131/73
[2019-01-25 09:53] VITALS: BP 158/80
--- NOTE | 2019-01-25 12:56 | NUR ---
PT DISCHARGING TODAY TO [facility] WITH [facility] FAXED DC ORDERS/SUMMARY TO FACILITY SPOKE WITH LUCIO IN ADM SHE RCCEIVED DC ORDERS. DCP ARRANGED TRANSPORTATION VIA [facility]ROUGH [facility] TRIP #[id number] FOR [phone]. PT'S DTR MAY RIDE WITH PT TO FACILITY. UNIT NOTIFIED AND CHART COPY PER US. RN TO CALL REPORT TO [phone].
--- NOTE | 2019-01-25 13:11 | NUR ---
PATIENT DISCHARGED AT 1300 VIA [facility]. PICC REMOVED FROM RIGHT UPPER ARM. INTACT WITH MINIMAL DISCOMFORT TO PATIENT. ALL BELONGINGS PACKED AND SENT WITH PATIENT, PT LEFT WITH LOCKE AND 2L 02 PER N/C. REPORT GIVEN TO [facility] WERE PATIENT IS RETURNING. PT'S APPETITE IS BITES AND SIPS ONLY. DAUGHTER AT PATIENT'S BEDSIDE WILL RIDE WITH PATIENT TO [facility].
--- NOTE | 2019-01-27 07:39 | HC ---
[facility] [place] [address] CONSULTATION Name: VONNIE BRANHAM Robert Room #: 421-P [facility] ..#: [id number] Admission: 01/09/19 ������������������ Attend Phys: Sarah Valencia MD Discharge: 01/25/19 ������������������ Date of : 32 Report #: [id number] THIS REPORT FOR: //name// CC: Sarah Valencia REASON FOR CONSULTATION: Elevated creatinine. REASON FOR PRESENTATION: Shortness of breath. REASON FOR CONSULTATION: Acute kidney injury. HISTORY OF PRESENT ILLNESS: This is obtained from the medical chart as the patient has dementia and not able to provide me with the details of the history. She is an 88-year-old with advanced cardiomyopathy who presented on 01/09/2019 with shortness of breath. Unfortunately, the patient's condition deteriorated. She required CPAP in the Emergency Room; however, she continued to have labored breathing and was intubated. She was admitted to the intensive care unit, stabilized and then moved to the fourth floor. Presentation creatinine was 0.921. The patient's creatinine has started to go up on January 17 [address] up to 3.1 as of today. She received a contrasted CT on 01/09. She has been receiving some diuretics. Because of the rising creatinine, I was consulted to manage her acute kidney injury. PAST MEDICAL HISTORY: Obtained from the medical chart as the patient has advanced dementia, not able to provide me with the details of the history. 1. Hypertension. 2. Advanced cardiomyopathy. 3. Hyperlipidemia. 4. Multiple cerebrovascular accident. 5. Dementia. 6. Blindness. MEDICATIONS: 1. Albuterol. 2. Carvedilol. 3. Furosemide. 4. Prednisone. 5. Namenda. ALLERGIES: SULFA. SOCIAL HISTORY: Unobtainable given the patient's medical status. I am not really sure where does she live. FAMILY HISTORY: Unobtainable given the patient's medical status. REVIEW OF SYSTEMS: Unobtainable given the patient's dementia. [facility] [address] [place] [address] CONSULTATION Name: YONASVONNIE Room #: 421-P [facility] ..#: [id number] Admission: 01/09/19 ������������������ Attend Phys: Sarah Valencia MD Discharge: 01/25/19 ������������������ Date of : 31 Report #: [id number] PHYSICAL EXAMINATION: GENERAL: She is disoriented to time, place and person. VITAL SIGNS: Blood pressure is 138/67 and respiratory rate is 18. HEAD AND NECK: No jugular venous distention. CHEST: No crackles. CARDIOVASCULAR: No rub. ABDOMEN: Soft and nontender. LOWER EXTREMITIES: No edema. ASSESSMENT, IMPRESSION AND PLAN: 1. Acute kidney injury. 2. Advanced cardiomyopathy. 3. Hyperkalemia. 4. Respiratory failure. 5. 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 6. Remote history of cerebrovascular accident. 7. Atrial fibrillation. 8. Dementia. 8. DNR status. As of this moment, we will send appropriate workup for the patient's acute kidney injury. I am trying to be as conservative as possible with the medical care of this 88-year-old acute DNR patient. I do not see any precipitating event for the rise in creatinine other than diuresis and I agree with discontinuation of diuretics at this point. Avoid nephrotoxins and follow vancomycin level. Usual and routine management of her other comorbid conditions. ��������������������������������������������� <ELECTRONICALLY SIGNED> ���������������������������������������� By: Zahira Booth MD ��������������������������������������������� 01/27/19 0739 9 7 Zahira Booth MD /nt
== END 2019-01-25 13:00 | DRG 207 ==
LOC: ER 05:52 → EROBS 10:42 → ICU 10:42 → 4E 01-19 14:27
PROVIDERS: Emergency Medicine; Hospitalist; Internal Medicine; Internal Medicine Pulmonary Disease; Pediatrics; ADMIT Internal Medicine
PROC: 0BH17EZ Insertion of Endotracheal Airway into Trachea, Via Natural or Artificial Opening (ICD-10-PCS; principal; 2019-01-09)
PROC: B244ZZZ Ultrasonography of Right Heart (ICD-10-PCS; principal; 2019-01-09)
PROC: 5A1955Z Respiratory Ventilation, Greater than 96 Consecutive Hours (ICD-10-PCS; principal; 2019-01-09)
PROC: 02H633Z Insertion of Infusion Device into Right Atrium, Percutaneous Approach (ICD-10-PCS; principal; 2019-01-09)
DX: J96.01 Acute respiratory failure with hypoxia (principal); I50.43 Acute on chronic combined systolic (congestive) and diastolic (congestive) heart failure; J69.0 Pneumonitis due to inhalation of food and vomit; I42.9 Cardiomyopathy, unspecified; N17.9 Acute kidney failure, unspecified; I13.0 Hypertensive heart and chronic kidney disease with heart failure and stage 1 through stage 4 chronic kidney disease, or unspecified chronic kidney disease; J98.11 Atelectasis; E87.0 Hyperosmolality and hypernatremia; N18.9 Chronic kidney disease, unspecified; Z66 Do not resuscitate; E11.22 Type 2 diabetes mellitus with diabetic chronic kidney disease; E87.6 Hypokalemia; Y95 Nosocomial condition; I08.1 Rheumatic disorders of both mitral and tricuspid valves; J44.9 Chronic obstructive pulmonary disease, unspecified; R13.12 Dysphagia, oropharyngeal phase; E87.5 Hyperkalemia; I48.91 Unspecified atrial fibrillation; E78.00 Pure hypercholesterolemia, unspecified; K21.9 Gastro-esophageal reflux disease without esophagitis; H40.9 Unspecified glaucoma; F03.90 Unspecified dementia, unspecified severity, without behavioral disturbance, psychotic disturbance, mood disturbance, and anxiety; D64.9 Anemia, unspecified; H54.40 Blindness, one eye, unspecified eye; Z86.73 Personal history of transient ischemic attack (TIA), and cerebral infarction without residual deficits; Z98.42 Cataract extraction status, left eye; Z98.41 Cataract extraction status, right eye; Z99.3 Dependence on wheelchair; Z90.710 Acquired absence of both cervix and uterus; Z90.49 Acquired absence of other specified parts of digestive tract; Z79.82 Long term (current) use of aspirin; Z79.899 Other long term (current) drug therapy; Z88.2 Allergy status to sulfonamides; Z82.49 Family history of ischemic heart disease and other diseases of the circulatory system
CPT/HCPCS: 10078; 10084; 10203; 10783; 27000